=== PATIENT | female | born 1975 | race American Indian/Alaskan Native ===

== ENCOUNTER 2016-12-25 09:05 | Outpatient (CLI) | payer OTHER ==
--- NOTE | 2016-12-26 00:21 | Treadmill Report ---
NUCLEAR STUDY READING PHYSICIAN: George Guillen MD IMAGING PROTOCOL: The patient received 10 mCi of Technetium 99m Tetrofosmin for resting image and 28 mCi of Technetium 99m Tetrofosmin for stress imaging. The imaging for the whole procedure was completed 30-90 minutes following the initial injection of Technetium 99m tetrofosmin. The SPECT imaging in the 180 degree arc was performed in the right anterior oblique projection. Computerized reconstruction of the images was performed for analysis. IMAGING RESULTS: Normal cavity size from stress to rest. Normal distribution of radionuclide in the anterior, inferior, septal, and apical regions. Gated SPECT, EF of 63% with no wall motion abnormality. The patient exercised on Alvaro protocol for 9 minutes. No EKG changes suggestive of ischemia. SUMMARY: 1. Negative treadmill EKG. 2. Good exercise capacity 9 minutes Alvaro protocol. 3. No exaggerated BP response to exercise. 4. Normal rest and stress myocardial perfusion scan. No significant stress ischemia. No wall motion abnormality. Gated SPECT, EF 63%. [facility]# [id number] BRANDI/ANNE
== END 2016-12-25 09:06 | disposition home or self-care (01) ==
LOC: ECHO 09:05
PROVIDERS: ATTEND Internal Medicine
DX: Z01.810 Encounter for preprocedural cardiovascular examination (principal); I08.1 Rheumatic disorders of both mitral and tricuspid valves
CPT/HCPCS: 78452; 93017; 93306; A9502